=== PATIENT | male | born 1990 | race Caucasian/White ===

== ENCOUNTER 2016-09-26 13:28 | Emergency (ER) | payer SELFPAY ==
--- NOTE | ~2016-09-26 | ER ---
PATIENT'S NAME: MARZENA TORRES [facility] AGE: 25 Y [address] ROOM: [place] [address] LOCATION: [facility] ADMIT DATE: 09/26/2016 ER/Outpatient Report DISCHARGE DATE: 09/26/2016 FAMILY PHYSICIAN: PHYSICIAN, NO ATTENDING PHYSICIAN: Carolynn Julio Time of Arrival: 1328 hours. Time of Exam: 1345 hours. CHIEF COMPLAINT: Congestion and headache. HISTORY OF PRESENT ILLNESS: The patient states he has not felt well for the last week, has had a lot of sinus congestion, headache, vomiting after coughing and has been coughing up yellow-green phlegm. He did have a loose stool today. States he has felt chilled at times, has not checked his temperature. Has not taken any over-the- counter medications for his symptoms. ALLERGIES: NO KNOWN ALLERGIES. CURRENT MEDICATIONS: None. PAST MEDICAL HISTORY: Benign. PAST SURGERIES: Left artificial eardrum. SOCIAL HISTORY: He smokes 1/2 packs per day. Drinks alcohol at least once weekly. Denies use of marijuana or other recreational drugs. REVIEW OF SYSTEMS: All negative other than those mentioned in the HPI. PHYSICAL EXAMINATION: VITAL SIGNS: He weighed 82 kg. Blood pressure is 126/70, pulse is 72, respirations are 16, temperature of 98.8, and O2 saturation was 98% on room air. GENERAL: He is awake, alert, and oriented x4. SKIN: [place], warm, and dry. RESPIRATIONS: Even and nonlabored. PATIENT'S NAME: MARZENA TORRES [facility] AGE: 25 Y [address] ROOM: [place] [address] LOCATION: [facility] ADMIT DATE: 09/26/2016 ER/Outpatient Report DISCHARGE DATE: 09/26/2016 FAMILY PHYSICIAN: PHYSICIAN, NO ATTENDING PHYSICIAN: Carolynn Julio HEENT: TMs are injected. Nasal is boggy. Oropharynx is red posteriorly from a postnasal drip. NECK: Supple. No lymphadenopathy. LUNGS: Lung sounds are clear throughout. HEART: Regular rate and rhythm. ABDOMEN: Soft and nondistended. Bowel sounds are present. IMPRESSION: Sinusitis. PLAN: Home. Rest. Fluids. A prescription was written for Bactrim DS b.i.d. x10 days. He is to do [id number] cough syrup. Tylenol or ibuprofen as needed. A note was written to excuse him from work. He is to follow up with his primary provider in 2-3 days. He verbalized understanding. NAHEED GARCÍA APRN FOR MD ESTEVAN GUEVARA/shimon /[id number] d: 09/27/16 0128 t: 10/02/16 1015, OUTPATIENT REPORT
== END 2016-09-26 14:10 | disposition disaster alternative care site (69) ==
LOC: GMED 13:28
DX: J32.9 Chronic sinusitis, unspecified (principal); F17.210 Nicotine dependence, cigarettes, uncomplicated; Z98.890 Other specified postprocedural states